=== PATIENT | male | born 1975 | race Caucasian/White ===

== ENCOUNTER 2017-05-02 08:43 | Emergency (ER) | payer OTHER ==
[~2017-05-02 08:43] MED LIST: AMLO5TAB2 PO; AMOX1TAB61 PO; ASPI325T8 PO; ATOR40TA59 PO; BUTA1CAP29 PO; TOPI25TA52 PO; TRAM50TA PO
[2017-05-02 08:50] VITALS: BP 162/94
[2017-05-02] MEDS ORDERED: IBUP-1060 PO (09:19)
[2017-05-02] MEDS ORDERED: CYCL10TA2 PO (09:19)
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
== END 2017-05-02 09:28 | disposition home or self-care (01) ==
LOC: ER 08:43
DX: M54.6 Pain in thoracic spine (principal); M54.5 Low back pain; I10 Essential (primary) hypertension; E78.00 Pure hypercholesterolemia, unspecified; G43.909 Migraine, unspecified, not intractable, without status migrainosus; Z88.2 Allergy status to sulfonamides; V29.40XA Motorcycle driver injured in collision with unspecified motor vehicles in traffic accident, initial encounter; Y93.I9 Activity, other involving external motion; Y92.410 Unspecified street and highway as the place of occurrence of the external cause; Y99.8 Other external cause status
CPT/HCPCS: 99283